=== PATIENT | male | born 1955 | race Caucasian/White ===

== ENCOUNTER 2018-07-27 01:57 | Inpatient (IN) | payer OTHER ==
[2018-07-26 14:39] LABS: INR 0.95
[~2018-07-27] VITALS: Ht 182.9 cm; Wt 128.8 kg
[2018-07-27] VITALS (15 sets, daily range): BP systolic 116–142; BP diastolic 69–89
[~2018-07-27 01:57] MED LIST: AMLO-125 PO; ASPI-1471 PO; ATR80PT PO; LISI5TAB25 PO; METO50TA19 PO
[2018-07-27] MEDS ORDERED: NORMOSOL R SOLN(*) 1000 ML BAG 1,000 ML IV PRN ×2 (07:40→13:15)
[2018-07-27] MEDS ORDERED: ROPIVACAINE 0.2% 400 MG/200ML 250 ML CONINFUS ONE (07:40)
[2018-07-27] MEDS ORDERED: TRANEXAMIC AC 1000 MG/10ML SDV 1,000 MG in NS(*) 0.9% 50 ML BAG 50 ML IV ONE (07:40)
[2018-07-27] MEDS ORDERED: FAMOTIDINE 20 MG TAB PO ONE (07:40)
[2018-07-27] MEDS ORDERED: MIDAZOLAM 2 MG/2 ML VIAL IVP PRN (07:40)
[2018-07-27] MEDS ORDERED: LIDOCAINE/SOD BICARB 8.4% SYR ID ONE (07:40)
[2018-07-27] MEDS ORDERED: ROPIVACAINE/EPI/CLONIDINE/KET 50 ML SYRINGE INJ ONE (07:40)
[2018-07-27] MEDS ORDERED: CELECOXIB 200 MG CAP PO ONE (07:40)
[2018-07-27] MEDS ORDERED: PREGABALIN 150 MG CAPSULE PO ONE (07:40)
[2018-07-27] MEDS ORDERED: ceFAZolin(*) 2GM/D5W 50ML 50 ML IVPB ONE (07:40)
[2018-07-27] MEDS ORDERED: ACETAMINOPHEN 500 MG TAB PO ONE (07:40)
[2018-07-27] MEDS ORDERED: fentaNYL CITR 100 MCG/2 ML AMP ONE ×5 (10:26→13:15)
[2018-07-27] MEDS ORDERED: LACTATED RINGER 3000 ML BAG IR ONE (11:14)
[2018-07-27] MEDS ORDERED: NS 0.9% IRRIGATION 1000ML PLCT IR ONE (11:14)
[2018-07-27] MEDS ORDERED: DEXAMETHASONE SOD PHOS 10MG/ML ONE (11:38)
[2018-07-27] MEDS ORDERED: ONDANSETRON 4 MG/2 ML VIAL ONE (11:38)
[2018-07-27] MEDS ORDERED: ROPIVACAINE 0.2% 20 ML VIAL ONE (11:38)
[2018-07-27] MEDS ORDERED: PROPOFOL EMUL(*) 10MG/ML 20 ML 20 ML ONE (11:38)
[2018-07-27] MEDS ORDERED: HYDROmorphone HCL 2 MG/ML SDV ONE (12:42)
[2018-07-27] MEDS ORDERED: BISACODYL 10 MG SUPP PR PRN (13:15)
[2018-07-27] MEDS ORDERED: MORPHINE 4 MG/ML SDV IVP PRN (13:15)
[2018-07-27] MEDS ORDERED: traMADol 50 MG TAB PO PRN (13:15)
[2018-07-27] MEDS ORDERED: FLUSH 10 ML SYR IVP PRN (13:15)
[2018-07-27] MEDS ORDERED: MAGNESIUM HYDROXIDE* 30ML UDCP PO PRN (13:15)
[2018-07-27] MEDS ORDERED: ZOLPIDEM TARTRATE 5 MG TAB PO PRN (13:15)
[2018-07-27] MEDS ORDERED: PROMETHAZINE 25 MG/ML 1 ML AMP IVP PRN (13:15)
[2018-07-27] MEDS ORDERED: oxyCODONE HCL 5 MG CAP PO PRN (13:15)
[2018-07-27] MEDS ORDERED: ONDANSETRON 4 MG/2 ML VIAL IVP PRN ×2 (13:15→13:55)
--- NOTE | 2018-07-27 13:45 | OPERATIVE REPORT 1 ---
EVENT DATE: July 27, 2018 SURGEON: Bradford Pierre MD ANESTHESIOLOGIST: Ulises Ornelas MD ANESTHESIA: Right adductor canal block with indwelling catheter followed by general anesthesia. RUG DYER: Rodrigo Hamilton PA-C PREOPERATIVE DIAGNOSIS Right knee degenerative joint disease. POSTOPERATIVE DIAGNOSIS Right knee degenerative joint disease. PROCEDURE PERFORMED Right total knee arthroplasty. IMPLANTS MicroPort medial pivot CS system with a 4 femur, 5 tibia, 12 mm CS insert, 8 x 35 symmetric patella, femur cut 6 degrees valgus, 10 mm. We also utilized two packages of [employer]Joy Avery Blue cement and ZipLine Wound Closure System. In addition to general anesthesia, we also used 50 cc's of our standard Toradol/ropivacaine cocktail. SPECIMENS None. COMPLICATIONS None. BLOOD LOSS Less than 200 cc. OPERATION The patient received appropriate preoperative antibiotic, was brought to the OR, where Dr. Ornelas performed right adductor canal block followed by general anesthesia. Right thigh tourniquet was placed. Right lower extremity prepped and draped in the usual sterile fashion. Midline incision was made followed by a medial parapatellar arthrotomy. I encountered a fairly significant bursal reaction. This was sharply excised. We then dissected subperiosteally along the medial tibial plateau to the semimembranosus insertion. We excised the fad patient, released the patella, everted this and brought the knee up in hyperflexion. ACL and PCL were released subperiosteally by Bovie. We utilized the sagittal saw to remove the distal femoral condyles of the remaining articular cartilage. Step-cut drill was utilized to broach the femoral canal. We then placed our distal femoral alignment guide and set our cutting block up at 10 mm, 6 degrees valgus and with care was taken to protect the soft tissues we made our cut. 3 degree external rotation guide and sizer were then placed, referencing off the anterior flange of the epicondyles and posterior condyles. This was drilled and we placed our four-in-one cutting block. We made our four cuts after placing Z-retractors to protect the soft tissue. We then brought the anteriorly on the femur with appropriate retractors and step-cut drill was utilized to broach the tibial canal. Then we placed our intramedullary tibial guide and set this up, referencing 10 mm off the least involved lateral tibial plateau and for rotation, pinned the block into place, placed our retractors and made our tibial cut. This was sized to a #5. We then removed the stump of the ACL and PCL, medial and lateral meniscus by Bovie. Curved osteotome was utilized to remove posterior osteophytes. Lee elevator was utilized to elevate the capsule. We placed our trial #5 tibial base plate, referencing from previous rotation, pinned this into place. We placed our 12 mm insert and then our #4 femur. We achieved full extension. Flexion was limited only by body habitus at about 130 degrees. He was stable to varus and valgus stress at 90 degrees and anterior drawer. The knee was placed in full extension. We sized the patella to 23 mm, utilizing an 8 mm guide. This was cut down to 15 mm. Peg hole guide was positioned inferiorly medially. We placed our 35 x 8 trial, brought the knee up into flexion, drilled our peg holes, placed our pegs, cut for trochlea and placed this. Again, we had the aforementioned range of motion and stability and the patella tracked well. Patella, femur and tibial insert were removed. Appropriate retractors were placed. We set up our keel tower, which was cut, reamed and punched. This instrumentation was removed. Bone plug was placed in the distal femur and brought the knee out in full extension. We copiously irrigated by pulse lavage, where we mixed two packages of DonJoy Avery blue cement. We placed 10 cc of our ropivacaine/Toradol cocktail in the posterior capsule and brought the knee up in appropriate position, starting at the tibia. This was cemented into place followed by our 12 mm insert and then our femur. Excess cement was removed. The knee was brought into full extension to axial compression while we cemented the patella. It took approximately 14 minutes for the cement to cure. Again, we had the aforementioned range of motion stability after the cement had cured. Prior to this, we injected a remaining 40 cc of our cocktail in the distal quads and irrigated throughout the cement curing time. We then placed the knee at 30 degrees, closed the arthrotomy with #2 Vicryl in [id number] suture fashion followed by 2-0 Vicryl for subcutaneous tissue and ZipLine Wound Closure System for skin at 45 degrees after cleaning the skin. Compressive dressing was applied. Patient was extubated and taken to recovery in stable condition. Hospitalist team was consulted for medical management and anticoagulation, PT for rehab. REBEKAHD
[2018-07-27] MEDS ORDERED: ISOS30TA54 PO (14:18)
--- NOTE | 2018-07-27 14:44 | RADIOLOGY IMAGING REPORT ---
[place] [facility] [place] NAME: Lay Mcclellan : 1955 MR: [id number] V: [id number] EXAM DATE: ORDERING PHYSICIAN: CHASE MAC TECHNOLOGIST: Location: [facility] Patient: Lay Mcclellan : 1955 Visit/Account:[id number] Date of Sevice: 07/27/2018 Exam type: KNEE LIMITED RIGHT History: POST R TKA Comparison: None. Findings: Two views the right knee demonstrate a right knee arthroplasty in good anatomic alignment. Soft tiss ue gas projects over the anterior aspect of this postoperative knee IMPRESSION: 1. As above Report Dictated By: Fozia Telles MD at 07/27/2018 2:39 PM Report E-Signed By: Fozia Telles MD at 07/27/2018 2:40 PM WSN:[id number]
--- NOTE | 2018-07-27 14:59 | Hospitalist Consultation ---
History of Present Illness Requesting Physician Dr. Pierre Reason for Consult Medical Management Chief Complaint s/p right knee replacement History of Present Illness He was admitted s/p right knee replacement. It is reported the surgery went well and without complication. History Problems: (1) CAD (coronary artery disease) Status: Chronic (2) Hypertension Status: Chronic (3) ERNST (obstructive sleep apnea) Status: Chronic Home Meds Reported Medications Isosorbide Mononitrate (ISOSORBIDE MONONITRATE ER) 30 Mg Tab.er.24h, 30 MG PO DAILY 07/27/18 Aspirin (ASPIR 81) 81 Mg Tablet.dr, 81 MG PO QDAY, TAB 07/20/18 Amlodipine Besylate (AMLODIPINE BESYLATE) 5 Mg Tablet, 1 TAB PO QDAY, TAB 07/20/18 Atorvastatin (LIPITOR) 80 Mg Tab, 0.5 TAB PO QDAY, TAB 07/20/18 Metoprolol Succinate (METOPROLOL SUCCINATE) 50 Mg Tab.er.24h, 1 TAB PO QDAY, TAB 07/20/18 Discontinued Reported Medications Lisinopril (LISINOPRIL) 5 Mg Tablet, 5 MG PO QDAY, TAB 07/20/18 Allergies: Coded Allergies: No Known Drug Allergies (Unverified , 07/20/18) Patient History: FH: heart disease FATHER Hx Smoking: No Smoking Status: Never Smoker Caffeine Intake: Coffee, Tea Caffeine/Cups Per Day: 2 Hx Alcohol Use: No When Quit Alcohol?: 2010 Hx Substance Use Disorder: No Social Drug Use: Never Review of Systems All Systems Reviewed/Normal: Yes, Except as Noted Exam Vital Signs Vital Signs Date Time Temp Pulse Resp B/P (MAP) Pulse Ox O2 Delivery O2 Flow Rate FiO2 07/27/18 13:59 83 Nasal Cannula 3.0 07/27/18 13:37 98.8 67 14 123/80 (94) General Appearance: Alert, Awake, No Acute Distress, Afebrile Neuro: No Gross deficits Cardiovascular: Regular Rate and Rhythm Respiratory: No Respiratory Distress, Clear to Auscultation GI: Abd Soft and Non-Tender Psych: Alert & Oriented X3, Appropriate Mood & Affect Assessment and Plan Problems: (1) Status post right knee replacement Status: Acute Assessment & Plan: Followed by Dr. Pierre. He will be placed on Aspirin 325mg f or DVT prophylaxis. (2) Hypertension Status: Chronic Assessment & Plan: He is on chronic treatment with Amlodipine and Metoprolol. These have been restarted with hold parameters. (3) CAD (coronary artery disease) Status: Chronic Assessment & Plan: He did have [place] in 2012. He is on chronic treatment with baby aspirin and Atorvastatin. He will continue Atorvastatin. Baby aspirin to be held while receiving the adult strength aspirin. (4) ERNST (obstructive sleep apnea) Status: Chronic Assessment & Plan: He is on chronic treatment with CPAP. He did bring his machine to use during admission. Venous Thromboembolism Antithrombotics Is Pt On Any Antithrombotics?: No Problem Qualifiers (1) Hypertension: Hypertension type: essential hypertension Qualified Codes: I10 - Essential (primary) hypertension TATUM SAMANIEGO Jul 27, 2018 14:59
[2018-07-27] MEDS ORDERED: NS(*) 0.9% 250 ML BAG 250 ML ONE (16:25)
[2018-07-27] MEDS: ACETAMINOPHEN 500 MG TAB PO SCH (16:30)
[2018-07-27] MEDS: ceFAZolin(*) 2GM/D5W 50ML 50 ML IVPB SCH (16:31)
--- NOTE | 2018-07-27 17:55 | NUR ---
Physical Therapy Impression PT eval completed. PT bryan amb to/from BR with FWW and CGA/Min assist. CPM placed and fitted, on and running 0-40 degrees. Physical Therapy Goals 1. Pt to be modified indep with supine<>sit trnsfrs 2. Pt to be Modified indep sit<>stand trnsfrs 3. Pt to amb 150' with least restrictive device and Modified indep 4. Pt to bryan up/down 4 steps with rail and SBA/Modified indep Patient's Goals
[2018-07-27] MEDS: ATORVASTATIN 40 MG TAB PO SCH (20:51)
[2018-07-27] MEDS: ISOSORBIDE MONONITR 30MG TABCR PO SCH (20:51)
[2018-07-27] MEDS: ASPIRIN 325 MG ENTERIC COATED PO SCH (20:52)
[2018-07-27] MEDS: METOPROLOL SUCC XL 50 MG TABCR 50 MG TAB.ER.24H PO SCH (20:52)
[2018-07-27] MEDS: amLODIPine BESYL(*) 5 MG TAB PO SCH (20:52)
[2018-07-27] MEDS: KETOROLAC TROM 10MG TAB PO PRN (21:09)
[2018-07-28] MEDS: ACETAMINOPHEN 500 MG TAB PO SCH ×3 (00:30→17:50)
[2018-07-28] MEDS: ceFAZolin(*) 2GM/D5W 50ML 50 ML IVPB SCH ×2 (00:31→09:33)
[2018-07-28 03:52] VITALS: BP 120/73
[2018-07-28 09:27] VITALS: BP 135/81
[2018-07-28 09:51] VITALS: Ht 182.9 cm; Wt 128.8 kg
--- NOTE | 2018-07-28 10:40 | Hospitalist Progress Note ---
Subjective Progress Notes Subjective He was admitted after knee replacement. He has no complaints this morning. He had no acute events overnight. Patient Complains of: Cardiovascular: No: Chest Pain Respiratory: No: Shortness of Breath Physical Exam Vital Signs Date Time Temp Pulse Resp B/P (MAP) Pulse Ox O2 Delivery O2 Flow Rate FiO2 07/28/18 09:27 92 07/28/18 09:27 98.1 73 12 135/81 (99) Room Air 07/28/18 03:52 4.0 Intake and Output 07/28/18 07:00 Intake Total 1865 ml Balance 1865 ml Intake Oral 100 ml IV Total 1765 ml # Voids 3 General Appearance: Alert, Awake, No Acute Distress, Afebrile Neuro: No Gross deficits Cardiovascular: Regular Rate and Rhythm Respiratory: No Respiratory Distress, Clear to Auscultation GI: Soft and Non-Tender Psych: Alert & Oriented X3, Appropriate Mood & Affect Assessment and Plan Problems: (1) Status post right knee replacement Status: Acute Assessment & Plan: Followed by Dr. Pierre. He will be placed on Aspirin 325mg for DVT prophylaxis. (2) Hypertension Status: Chronic Assessment & Plan: He is on chronic treatment with Amlodipine and Metoprolol. These have been restarted with hold parameters. (3) CAD (coronary artery disease) Status: Chronic Assessment & Plan: He did have [place] in 2012. He is on chronic treatment with baby aspirin and Atorvastatin. He will continue Atorvastatin. Baby aspirin to be held while receiving the adult strength aspirin. (4) ERNST (obstructive sleep apnea) Status: Chronic Assessment & Plan: He is on chronic treatment with CPAP. He did bring his machine to use during admission. Exam Sepsis Risk: No Definite Risk Problem Qualifiers (1) Hypertension: Hypertension type: essential hypertension Qualified Codes: I10 - Essential (primary) hypertension TATUM SAMANIEGO Jul 28, 2018 10:40
[2018-07-28] MEDS: KETOROLAC TROM 10MG TAB PO PRN ×2 (10:55→20:36)
--- NOTE | 2018-07-28 11:28 | NUR ---
Physical Therapy Impression PT tolerated ambulation with FWW in hallway x 250' with excellent alberta. Pt would like to address platform step this afternoon if pain continues to be well managed, Physical Therapy Goals 1. Pt to be modified indep with supine<>sit trnsfrs 2. Pt to be Modified indep sit<>stand trnsfrs 3. Pt to amb 150' with least restrictive device and Modified indep 4. Pt to bryan up/down 4 steps with rail and SBA/Modified indep Patient's Goals
[2018-07-28 11:58] VITALS: BP 126/81
[2018-07-28 14:48] VITALS: BP 118/66
[2018-07-28 20:11] VITALS: BP 130/85
[2018-07-28] MEDS: ATORVASTATIN 40 MG TAB PO SCH (20:36)
[2018-07-28] MEDS: METOPROLOL SUCC XL 50 MG TABCR 50 MG TAB.ER.24H PO SCH (20:36)
[2018-07-28] MEDS: amLODIPine BESYL(*) 5 MG TAB PO SCH (20:37)
[2018-07-28] MEDS: ISOSORBIDE MONONITR 30MG TABCR PO SCH (20:37)
[2018-07-28] MEDS: ASPIRIN 325 MG ENTERIC COATED PO SCH (20:37)
[2018-07-28 22:50] VITALS: BP 139/91
[2018-07-29] MEDS: ACETAMINOPHEN 500 MG TAB PO SCH ×2 (00:17→09:01)
[2018-07-29 03:09] VITALS: BP 127/84
[2018-07-29] MEDS ORDERED: ASPI-764 PO (08:13)
[2018-07-29 09:02] VITALS: BP 135/83
--- NOTE | 2018-07-29 10:30 | NUR ---
Physical Therapy Impression PT goals met and pt ready to d/c from a mobility standpoint when medically appropriate. Physical Therapy Goals 1. Pt to be modified indep with supine<>sit trnsfrs 2. Pt to be Modified indep sit<>stand trnsfrs 3. Pt to amb 150' with least restrictive device and Modified indep 4. Pt to bryan up/down 4 steps with rail and SBA/Modified indep Patient's Goals
--- NOTE | 2018-07-29 10:44 | Hospitalist Progress Note ---
Subjective Progress Notes Subjective He was admitted after knee replacement. He has no complaints this morning. He would like to go home today. Patient Complains of: Cardiovascular: No: Chest Pain Respiratory: No: Shortness of Breath Physical Exam Vital Signs Date Time Temp Pulse Resp B/P (MAP) Pulse Ox O2 Delivery O2 Flow Rate FiO2 07/29/18 09:08 Room Air 07/29/18 09:02 98.6 84 18 135/83 (100) 91 07/29/18 03:09 1.0 Intake and Output 07/29/18 07:00 Intake Total 830 ml Balance 830 ml Intake Oral 780 ml IV Total 50 ml # Voids 2 General Appearance: Alert, Awake, No Acute Distress, Afebrile Neuro: No Gross deficits Cardiovascular: Regular Rate and Rhythm Respiratory: No Respiratory Distress, Clear to Auscultation GI: Soft and Non-Tender Psych: Alert & Oriented X3, Appropriate Mood & Affect Assessment and Plan Problems: (1) Status post right knee replacement Status: Acute Assessment & Plan: Followed by Dr. Pierre. He will be placed on Aspirin 325mg for DVT prophylaxis. He will be sent home with oxygen to use at all times. He will follow up with PCP in 1-2 weeks. (2) Hypertension Status: Chronic Assessment & Plan: He is on chronic treatment with Amlodipine and Metoprolol. These have been restarted with hold parameters. (3) CAD (coronary artery disease) Status: Chronic Assessment & Plan: He did have [place] in 2012. He is on chronic treatment with baby aspirin and Atorvastatin. He will continue Atorvastatin. Baby aspirin to be held while receiving the adult strength aspirin. (4) ERNST (obstructive sleep apnea) Status: Chronic Assessment & Plan: He is on chronic treatment with CPAP. He did bring his machine to use during admission. Exam Sepsis Risk: No Definite Risk Problem Qualifiers (1) Hypertension: Hypertension type: essential hypertension Qualified Codes: I10 - Essential (primary) hypertension TATUM SAMANIEGO Jul 29, 2018 10:44
--- NOTE | 2018-07-30 09:04 | DISCHARGE SUMMARY ---
DATE OF ADMISSION: July 27, 2018 DATE OF DISCHARGE: July 29, 2018 HISTORY Patient is a 63-year old male admitted through Day Surgery who underwent right total knee arthroplasty. Postoperatively, the hospitalist team was consulted for medical management and anticoagulation, PT for rehab. He progressed in a satisfactory manner. On the day of discharge, the right lower extremity was neurovascularly intact. Wounds were clean, dry and intact. He will be discharged to home on Tylenol, Toradol, Tramadol and OxyIR. Hospitalist team will transfer his medical management. He will have outpatient physical therapy and home CPM and we will see him in approximately two weeks in clinic. PRINCIPLE DIAGNOSIS Right knee degenerative joint disease. PRINCIPLE PROCEDURE Right total knee arthroplasty. TAWNYA
== END 2018-07-29 11:00 | disposition home or self-care (01) | DRG 470 ==
LOC: OR 01:57 → EDSEX 10:30 → OBSVTOIN 14:00 → MED 14:00
PROVIDERS: ADMIT Orthopaedic Surgery; ATTEND Orthopaedic Surgery
PROC: 0SRC0J9 Replacement of Right Knee Joint with Synthetic Substitute, Cemented, Open Approach (ICD-10-PCS; principal; 2018-07-27 10:11)
PROC: 5A09357 Assistance with Respiratory Ventilation, Less than 24 Consecutive Hours, Continuous Positive Airway Pressure (ICD-10-PCS; 2018-07-27 10:11)
DX: M17.11 Unilateral primary osteoarthritis, right knee (principal); I10 Essential (primary) hypertension; G47.33 Obstructive sleep apnea (adult) (pediatric); K21.9 Gastro-esophageal reflux disease without esophagitis; I25.10 Atherosclerotic heart disease of native coronary artery without angina pectoris; I25.2 Old myocardial infarction; Z95.1 Presence of aortocoronary bypass graft
CPT/HCPCS: 36415; 76942; 85610; 86850; 86900; 86901; 97161; C1713; C1776; J0690; J1100; J2250; J2405; J2704; J2795; J3010; J7050